=== PATIENT | male | born 1965 | race Caucasian/White ===

== ENCOUNTER 2016-12-25 10:05 | Inpatient (IN) | payer BC ==
[~2016-12-25] VITALS: Ht 190.5 cm; Wt 104.3 kg
[~2016-12-25 10:05] MED LIST: LOSA100T11 PO; NIFE-2 PO; OMEP40CA33 PO; ZOLP5TAB2 PO
[2016-12-25] MEDS ORDERED: ALVIMOPAN 12 MG CAPSULE PO ONE (12:56)
[2016-12-25] MEDS ORDERED: cefOXitin SODIUM 2 GM in D5W 100 ML IV ONE (13:15)
[2016-12-25] MEDS ORDERED: SEVOFLURANE 15 MIN GAS INH ONE ×2 (14:00)
[2016-12-25] MEDS ORDERED: DEXAMETHASONE SOD PHOSPHATE 4 MG/ML VIAL ONE ×2 (14:00)
[2016-12-25] MEDS ORDERED: DOPamine PREMIX 400 MG/250 ML BTL IV ONE (14:00)
[2016-12-25] MEDS ORDERED: KETOROLAC TROMETHAMINE 30 MG VIAL ONE (14:00)
[2016-12-25] MEDS ORDERED: MIDAZOLAM HCL 5 MG/5 ML VIAL ONE ×2 (14:00)
[2016-12-25] MEDS ORDERED: fentaNYL CITRATE 250 MCG/5 ML AMP ONE ×2 (14:00)
[2016-12-25] MEDS ORDERED: fentaNYL CITRATE/PF 100 MCG/2 ML AMP ONE ×2 (14:00)
[2016-12-25] MEDS ORDERED: ONDANSETRON HCL 4 MG/2 ML VIAL ONE ×4 (14:00→20:26)
[2016-12-25] MEDS ORDERED: ROCURONIUM BROMIDE 10 MG/ML (ZEMURON) ONE ×2 (14:00)
[2016-12-25] MEDS ORDERED: NS 1000 ML BAG IV ONE ×2 (14:00)
[2016-12-25] MEDS ORDERED: THROMBIN (BOVINE) 5000 UNITS/ VIAL TP ONE (14:00)
[2016-12-25] MEDS ORDERED: cefOXitin SODIUM 2 GM/VIAL (MEFOXIN) ONE (14:00)
[2016-12-25] MEDS ORDERED: GELATIN SPONGE 100 TP ONE (14:00)
[2016-12-25] MEDS ORDERED: PROPOFOL 200MG/ 20ML VIAL (DIPRIVAN) IV ONE (14:00)
[2016-12-25] MEDS ORDERED: CALCIUM CHLORIDE 1 GM/10 ML DISP.SYRIN (14 mEq Ca++/SYR) ONE (14:00)
[2016-12-25] MEDS ORDERED: LR 1,000 ML IV.SOLN IV ONE (14:00)
[2016-12-25] MEDS ORDERED: NS IRRIG SOLN 1000 ML IR ONE (14:00)
[2016-12-25] MEDS ORDERED: BUPIVACAINE LIPOSOME/PF 266 MG/20 ML VIAL INFIL ONE (15:00)
[2016-12-25] MEDS ORDERED: FAMOTIDINE PF 20 MG/2 ML VIAL ONE (15:13)
[2016-12-25] MEDS ORDERED: HYDROmorphone 1 MG INJ. 1 MG/ML AMPUL IVP PRN (16:00)
[2016-12-25] MEDS ORDERED: MEPERIDINE HCL/PF 25 MG/ML DISP.SYRIN IVP PRN (16:00)
[2016-12-25] MEDS ORDERED: HYDROmorphone 2 MG/ML VIAL IVP PRN ×2 (16:00)
[2016-12-25] MEDS ORDERED: D5/0.45 NS 1,000 ML IV SCH (17:22)
[2016-12-25] MEDS ORDERED: HYDROcodone/ACETAMIN 5-325 MG TAB (NORCO/ VICODIN) PO PRN (17:30)
[2016-12-25] MEDS ORDERED: ONDANSETRON HCL 4 MG/2 ML VIAL IVP PRN ×2 (17:30→20:15)
[2016-12-25] MEDS ORDERED: HYDROmorphone 2 MG/ML VIAL ONE (17:57)
[2016-12-25 18:37] LABS: HEMATOCRIT 34.6 % (36-54); HEMOGLOBIN 12.2 g/dL (14.0-18.0)
[2016-12-25 18:55] LABS: ANION GAP 6 (5-15); CALCIUM 8.1 mg/dL (8.4-11.0); CHLORIDE 107 mmol/L (98-107); CREATININE 1.38 mg/dL (0.55-1.30); GLUCOSE 215 mg/dL (70-99); POTASSIUM 3.8 mmol/L (3.5-5.1); SODIUM SERUM 142 mmol/L (136-145); UREA NITROGEN, BLOOD 12 mg/dL (8-21)
[2016-12-25 18:56] LABS: GFR AFRICAN AMERICAN 70 mL/min (>90)
[2016-12-25] MEDS ORDERED: NALOXONE HCL 0.4 MG/ML AMP (NARCAN) IVP ONE (19:00)
[2016-12-25] MEDS ORDERED: NALOXONE HCL 0.4 MG/ML AMP (NARCAN) ONE (19:08)
[2016-12-25] MEDS ORDERED: LR 1,000 ML IV SCH ×2 (19:15→23:48)
[2016-12-25] MEDS ORDERED: ePHEDrine sulfate 50 MG/ML VIAL ONE (19:18)
[2016-12-25] MEDS ORDERED: ePHEDrine sulfate 50 MG/ML VIAL IVP ONE (19:30)
[2016-12-25] MEDS ORDERED: LR 1,000 ML IV ONE (19:47)
[2016-12-25] MEDS: DOPamine PREMIX 250 ML IV PRN (20:05)
[2016-12-25] MEDS ORDERED: METOCLOPRAMIDE HCL 10 MG/2 ML VIAL IVP ONE (20:15)
[2016-12-25] MEDS: LR 1,000 ML IV SCH (20:17)
[2016-12-25] MEDS ORDERED: METOCLOPRAMIDE HCL 10 MG/2 ML VIAL ONE (20:22)
[2016-12-25 20:25] LABS: HEMATOCRIT 32.7 % (36-54)
[2016-12-25] MEDS: NACL 0.9% 1,000 ML IV SCH ×2 (20:45)
[2016-12-25] MEDS: cefOXitin SODIUM 2 GM in D5W 100 ML IV SCH (21:00)
[2016-12-25] MEDS: ALVIMOPAN 12 MG CAPSULE PO SCH (21:00)
[2016-12-25] MEDS: FAMOTIDINE PF 20 MG/2 ML VIAL IVP SCH (21:00)
[2016-12-25] MEDS ORDERED: KETAMINE HCL 500 MG/10 ML VIAL ONE (21:29)
[2016-12-25 21:48] VITALS: BP 86/57; PULSE 73
[2016-12-25 23:48] LABS: HEMATOCRIT 32.1 % (36-54); HEMOGLOBIN 10.9 g/dL (14.0-18.0)
[2016-12-26] VITALS (23 sets, daily range): BP systolic 91–129; BP diastolic 60–78; PULSE 98–122; RESP 12–29; TEMP 97.2–100.3; O2SAT 6–99
[2016-12-26] MEDS ORDERED: MEPERIDINE HCL/PF 25 MG/ML DISP.SYRIN IVP PRN
[2016-12-26] MEDS ORDERED: HYDROmorphone 2 MG/ML VIAL IVP PRN ×2
[2016-12-26] MEDS ORDERED: HYDROmorphone 1 MG INJ. 1 MG/ML AMPUL IVP PRN
[2016-12-26] MEDS ORDERED: THROMBIN (BOVINE) 5000 UNITS/ VIAL TP ONE ×2 (00:07→00:10)
[2016-12-26] MEDS: DOPamine PREMIX 250 ML IV PRN ×2 (01:15→07:33)
[2016-12-26 01:56] LABS: HEMOGLOBIN 12.2 g/dL (14.0-18.0); MEAN CORPUSCULAR HEMOGLOBIN 30 pg (27-31); MEAN CORPUSCULAR HGB CONC 34 % (32-36); MEAN CORPUSCULAR VOLUME 89 fL (79.0-98.0); PLATELET COUNT (AUTO) 178 K/uL (130-430); RED BLOOD CELL COUNT(AUTO) 4.05 MIL/uL (4.2-6.2); WHITE BLOOD COUNT (AUTO) 18.6 K/uL (4.8-10.8)
[2016-12-26 02:03] LABS: CREATININE 1.57 mg/dL (0.55-1.30); INR 1.1 (0.80-1.20); POTASSIUM 5.8 mmol/L (3.5-5.1)
[2016-12-26 02:18] LABS: BAND % (MANUAL) 7 % (0-6); BASOPHILS % (MANUAL) 0 % (0-2); EOSINOPHILS % (MANUAL) 0 % (0-7); LYMPHOCYTES % (MANUAL) 5 % (20-46); MONOCYTES % (MANUAL) 6 % (0-11)
--- NOTE | 2016-12-26 02:40 | NUR ---
RECEIVED FROM PACU VIA BED A 51 YO W M W/ DIAGNOSIS OF S/P EXPLORATORY LAPAROTOMY- CONTROL OF POST OP BLEEDING. PT IS AWAKE, ALERT. IN NO APPARENT DISTRESS. ON DOPAMINE AT 5 MCG/KG/MIN. DENIES PAIN. ON O2 AT 2L/MIN/NC. BREATH SOUNDS ESSENTIALLY CLEAR. OCCASIONAL MOIST PRODUCTIVE COUGH. TAUGHT HOW TO SPLINT. MID ABDOMINAL INCISIONAL DRSG AND LEFT LOWER QUADRANT LAPAROSCOPIC INCISION. ABDOMINAL BINDER IN PLACE. ADRIANNA SCD'S ON. WEISS CATH PATENT DRAINING CLEAR YELLOW URINE TO GRAVITY. ST. INSTRUCTED TO LAY ON BACK PER .
--- NOTE | 2016-12-26 04:00 | NUR ---
ANSWERED ADMISSION ASSESSMENT QUESTIONS. RESPONSES APPROPRIATE. VSS. ON DOPAMINE AT 5 MCG/MIN. ORAL CARE GIVEN.
[2016-12-26] MEDS ORDERED: FLU VACC QS 2016-17(36MOS+)/PF 0.5 ML/SYR SYRINGE I.M. PRN (04:30)
--- NOTE | 2016-12-26 06:00 | NUR ---
SLEPT INTERMITTENTLY. ORAL CARE GIVEN. UO GOOD. VSS. DOPAMINE AT 5 MCG/KG/MIN. JESUS'Irasema DUPONT D/I. REMAINS IN GUARDED CONDITION.
[2016-12-26 06:40] LABS: BASOPHILS % (AUTO) 0.1 % (0.0-2.0); HEMATOCRIT 36.5 % (36-54); HEMOGLOBIN 12.7 g/dL (14.0-18.0); LYMPHOCYTES # (AUTO) 0.9 K/uL (1.0-5.5); LYMPHOCYTES % (AUTO) 5.8 % (20.5-51.5); MEAN CORPUSCULAR HEMOGLOBIN 31 pg (27-31); MEAN CORPUSCULAR HGB CONC 35 % (32-36); MEAN CORPUSCULAR VOLUME 89 fL (79.0-98.0); MONOCYTES # (AUTO) 0.9 K/uL (0.0-1.0); MONOCYTES % (AUTO) 5.7 % (1.7-9.3); NEUTROPHILS # (AUTO) 13.5 K/uL (1.8-7.7); NEUTROPHILS % (AUTO) 88.4 % (40.0-70.0); PLATELET COUNT (AUTO) 163 K/uL (130-430); RED BLOOD CELL COUNT(AUTO) 4.11 MIL/uL (4.2-6.2); RED CELL DISTRIBUTION WIDTH 13.2 % (9.0-15.0); WHITE BLOOD COUNT (AUTO) 15.3 K/uL (4.8-10.8)
[2016-12-26 06:54] LABS: ALBUMIN 2.5 g/dL (3.4-4.8); CALCIUM 7.4 mg/dL (8.4-11.0); CREATININE 1.43 mg/dL (0.55-1.30); POTASSIUM 4.9 mmol/L (3.5-5.1); TOTAL BILIRUBIN 1.9 mg/dL (0.0-1.0); TOTAL PROTEIN, SERUM 5.1 g/dL (6.4-8.3)
--- NOTE | 2016-12-26 07:20 | NUR ---
[place] of Care Received pt. Alert oriented, on 2L oxygen without SOB. Dopamine drip infusing. Dressings to abdomen intact, covered with abdominal binder. Call light in reach. Safe environment provided.
[2016-12-26] MEDS: ENOXAPARIN SODIUM 30 MG/0.3 ML SYRINGE SUBCUT SCH (07:46)
[2016-12-26] MEDS ORDERED: COMMUNICATION ORDER XX ONE (08:45)
--- NOTE | 2016-12-26 08:45 | NUR ---
Nutrition Update Bam Scale 17 noted. Pt admitted for diverticulitis of large intestine without perforation. Diet: NPO BMI: 28.7 kg/m2 RD to follow per nutrition care standards.
[2016-12-26] MEDS: ALVIMOPAN 12 MG CAPSULE PO SCH ×2 (09:00→21:36)
[2016-12-26] MEDS: cefOXitin SODIUM 2 GM in D5W 100 ML IV SCH ×3 (09:00→21:35)
[2016-12-26] MEDS: NACL 0.9% 1,000 ML IV SCH (10:00)
--- NOTE | 2016-12-26 10:00 | NUR ---
Will endorse care to SUSANNAH Gardner.
--- NOTE | 2016-12-26 10:05 | NUR ---
REPORT RECEIVED REPORT FROM Regine ECHEVARRIA, TO ASSUME CARE OF PT. PT AROUSES READILY TO VERBAL STIMULUS, STATES PAIN IS A 2 UNLESS HE COUGHS. INSTRUCTED HOW TO SPLINT INCISION WHEN COUGHING TO REDUCE THE PAIN AND THE IMPORTANCE OF COUGHING UP ANY SECRETIONS AND TAKING DEEP BREATHS. VERBALIZES UNDERSTANDING. HAS SCD'S IN USE. C/O DRY MOUTH, MOUTH SWABS AT BEDSIDE - ASSISTED TO SWAB MOUTH. FAMILY MEMBERS VISITED, QUESTIONS ANSWERED.
[2016-12-26] MEDS: D5/0.45 NS 1,000 ML IV SCH ×2 (10:32→21:36)
[2016-12-26] MEDS: HYDROmorphone 1 MG INJ. 1 MG/ML AMPUL IVP PRN ×5 (11:18→22:42)
--- NOTE | 2016-12-26 11:20 | NUR ---
REPORT REPORT GIVEN TO Ida FAITH RN TO ASSUME CARE.
--- NOTE | 2016-12-26 11:30 | NUR ---
Received awake alert,conversant. Scope Sinus Tachycardia .[id number]/min. Denies chest pain. Skin warm and dry a. [id number] Scope Sinus Tachycardia no ectopy noted. Denies chest pain.Lungs sound yang clear. O2 2L/nc. Abdomen soft. Abdominal dressing dry and intact. Binder intact. No Bowel sound noted. Leonard cath draine dark yellow color urine putput. IV site right sibclavian site with D5 1/2 NS at 100ml/hr. NS at 50ml/hr along rigth hand periphral and saline lock left hand and both patent,Denoes post op pain this time.
--- NOTE | 2016-12-26 12:00 | NUR ---
Dr Frost came with order okay to sit in chair and ice chips. Icechips given ,tolerated.
--- NOTE | 2016-12-26 13:00 | NUR ---
Dr Delcid came,assessed with order and carried out
--- NOTE | 2016-12-26 15:00 | NUR ---
right subclavian IV site cleansed and dressed aseptically. all IS placed on right subclavian site.Saline lock both peripheral site.
--- NOTE | 2016-12-26 16:00 | NUR ---
Get up to chair with help,RN and charge nurse. tolerated well.
[2016-12-26] MEDS: FAMOTIDINE PF 20 MG/2 ML VIAL IVP SCH ×2 (16:29→21:35)
--- NOTE | 2016-12-26 16:30 | NUR ---
Back to bed with help by 2 RN,tolerated.VS stable.
--- NOTE | 2016-12-26 16:51 | NUR ---
Post op pain scale 5. Medicated with Dilaudid 1mg IVP as patient requested as order. Slept after
--- NOTE | 2016-12-26 17:30 | NUR ---
woke up,post op pain relieved,Patient mother called in updated patient condition.
--- NOTE | 2016-12-26 18:01 | NUR ---
Alert,cooperative, Skin intact. Bedbath with HCG done. Kept clean and dry.Scope Sinus Tachycardia, no ectopy noted. HR 100-110/min. Lungs sound bilateral clear. O2 sat 96% on 2 L/nc. Deep breathing and coughing exercise encouraged . Abdominal binder intact. Post op pain tolerated. medication refused this time Leonard cath intact. drained 900ml total urine output. IV site right jugular patent. IV D5 1/2NS at 100ml/hr and NS at 50ml/hr.Saline lock both hands intact. Ice chips tolerated. No distress noted.
--- NOTE | 2016-12-26 19:00 | NUR ---
care endorsed to Kevin DAVALOS
--- NOTE | 2016-12-26 20:00 | NUR ---
EYES CLOSED, AROUSABLE ON APPROACH. RESPONSES APPROPRIATE. HAND ENVIRONMENTAL PROTECTION INSPECTOR GOOD. ON O2 AT 2L/MIN/NC. POX 96%. OCCASIONAL MOIST PRODUCTIVE COUGH. TAUGHT HOW TO SPLINT. ABDOMINAL DRSG X2 D/I. ABDOMINAL BINDER IN PLACE. ADRIANNA SCD'S ON. WEISS CATH PATENT DRAINING SMALL AMOUNT OF CONCENTRATED DUNCAN URINE TO GRAVITY. ST. RIGHT INTERNAL JUGULAR TLC DRSG D/I. HOB UP TO COMFORT. REPOSITIONS SELF WELL. CALL LIGHTS WITHIN REACH.
--- NOTE | 2016-12-26 21:00 | NUR ---
TYLENOL GR 10 PO GIVEN FOR TEMP 99.2 TEMPORAL ARTERY SCAN.
[2016-12-26] MEDS: ACETAMINOPHEN 325 MG TABLET PO PRN (21:37)
--- NOTE | 2016-12-26 22:42 | NUR ---
DOZES ON AND OFF. DILAUDID 1 MG IVP GIVEN FOR C/O ABDOMINAL INCISIONAL PAIN, ESPECIALLY WHEN HE COUGHS. SOME TEACHING AND EDUCATION DONE ON HOW TO SPLINT WHEN COUGHING, THE IMPORTANCE OF INCENTIVE SPIROMETER, AND MEDICATION. SEEMS TO UNDERSTAND.
[2016-12-27] VITALS (24 sets, daily range): BP systolic 124–162; BP diastolic 50–96; PULSE 73–95; RESP 12–27; TEMP 98.7–100.1; O2SAT 94–100
--- NOTE | 2016-12-27 | NUR ---
SLEPT INTERMITTENTLY. OCC TAKES OFF NASAL CANNULA, DESATURATES TO 91 %. INSTRUCTED TO KEEP IT ON, COMPLIANT. H/H DRAWN FROM RIGHT IJ. ABD'L PAIN BETTER. TEMP 99.1 ORALLY.
--- NOTE | 2016-12-27 01:45 | NUR ---
DR CASTILLO NOTIFIED OF H/H ., ORDERED REDRAW H/H BY STICK, CARRIED OUT.
[2016-12-27 01:53] LABS: HEMATOCRIT 25.1 % (36-54)
[2016-12-27 02:01] LABS: HEMOGLOBIN 8.5 g/dL (14.0-18.0)
--- NOTE | 2016-12-27 02:07 | NUR ---
DR CASTILLO NOTIFIED H/H SECOND DRAW ., ORDERED TO TRANSFUSE 1 UNIT [facility], TO BE IMPLEMENTED.
--- NOTE | 2016-12-27 03:00 | NUR ---
1 UNIT [facility] # [id number]
[2016-12-27] MEDS: NACL 0.9% 1,000 ML IV SCH ×2 (03:30→23:52)
--- NOTE | 2016-12-27 05:40 | NUR ---
PRBC ALL INFUSED. VSS.
[2016-12-27] MEDS: HYDROcodone/ACETAMIN 5-325 MG TAB (NORCO/ VICODIN) PO PRN ×3 (05:57→16:32)
--- NOTE | 2016-12-27 06:00 | NUR ---
USES INCENTIVE SPIROMETER TO 750 ML. [place] 5-325MG PO GIVEN FOR C/O ABD'L INCISIONAL PAIN. HOB HIGH FOWLERS. UO ADEQUATE. ABD'L DRGS D/I. TAKES ICE CHIPS. REMAINS IN GUARDED CONDITION.
[2016-12-27 06:52] LABS: ALBUMIN 2.2 g/dL (3.4-4.8); CALCIUM 7.2 mg/dL (8.4-11.0); CREATININE 0.94 mg/dL (0.55-1.30); POTASSIUM 3.9 mmol/L (3.5-5.1); TOTAL BILIRUBIN 0.7 mg/dL (0.0-1.0); TOTAL PROTEIN, SERUM 4.5 g/dL (6.4-8.3)
--- NOTE | 2016-12-27 07:45 | NUR ---
BEGINNING OF SHIFT ASSESSMENT: Received patient sitting upright in bed,guarding abdominal area.Patient is awake and alert x 4,able to make needs known,oriented to room and situation.Patient lung sounds clear through out,pt on NC 2L.Patient receiving NS at rate of 50cc/hr and D5 1/2 NS at rate of 100cc/hr. Patient has post op dressing to abdomen and abdominal bindings in place.Bed locked,in lowest position, call light with in reach, upper side rails x 2.Pt continues to be closely monitored.
[2016-12-27 07:47] LABS: HEMATOCRIT 27.1 % (36-54); HEMOGLOBIN 9.1 g/dL (14.0-18.0); MEAN CORPUSCULAR HEMOGLOBIN 30 pg (27-31); MEAN CORPUSCULAR HGB CONC 34 % (32-36); MEAN CORPUSCULAR VOLUME 89 fL (79.0-98.0); PLATELET COUNT (AUTO) 111 K/uL (130-430); RED BLOOD CELL COUNT(AUTO) 3.07 MIL/uL (4.2-6.2)
[2016-12-27 07:48] LABS: BASOPHILS # (AUTO) 0.1 K/uL (0.0-0.2); BASOPHILS % (AUTO) 0.5 % (0.0-2.0); EOSINOPHILS # (AUTO) 0.1 K/uL (0.0-0.4); EOSINOPHILS % (AUTO) 0.5 % (0.0-4.0); LYMPHOCYTES # (AUTO) 1.7 K/uL (1.0-5.5); LYMPHOCYTES % (AUTO) 15.8 % (20.5-51.5); MONOCYTES % (AUTO) 9.7 % (1.7-9.3); NEUTROPHILS # (AUTO) 7.8 K/uL (1.8-7.7); NEUTROPHILS % (AUTO) 73.5 % (40.0-70.0); WHITE BLOOD COUNT (AUTO) 10.7 K/uL (4.8-10.8)
[2016-12-27] MEDS: cefOXitin SODIUM 2 GM in D5W 100 ML IV SCH ×2 (08:43→21:46)
[2016-12-27] MEDS: ALVIMOPAN 12 MG CAPSULE PO SCH ×2 (08:43→21:46)
[2016-12-27] MEDS: ENOXAPARIN SODIUM 30 MG/0.3 ML SYRINGE SUBCUT SCH (08:43)
[2016-12-27] MEDS: ACETAMINOPHEN 325 MG TABLET PO PRN ×2 (08:43→18:21)
[2016-12-27] MEDS: FAMOTIDINE PF 20 MG/2 ML VIAL IVP SCH ×2 (08:44→21:46)
--- NOTE | 2016-12-27 11:10 | NUR ---
PAIN: Pt verbalized 3/10 pain to abdominal incision area.Patient given [place] 5/325 PO as ordered for pain.Will reassess patient within the hour.
[2016-12-27 11:57] LABS: HEMATOCRIT 26.2 % (36-54); HEMOGLOBIN 8.9 g/dL (14.0-18.0)
--- NOTE | 2016-12-27 12:00 | NUR ---
Pt Reassessment: Pt observed sitting in bed, resting with eyes closed.Medication effective.FLACC score 0.Pt bed locked,in lowest position,call light within easy reach, upper side rails x2 up.Pt continues to be monitored closely.
[2016-12-27] MEDS: D5/0.45 NS 1,000 ML IV SCH ×2 (12:25→23:51)
[2016-12-27] MEDS: HYDROmorphone 1 MG INJ. 1 MG/ML AMPUL IVP PRN ×2 (12:46→21:55)
--- NOTE | 2016-12-27 13:00 | NUR ---
SPIROMETER: Pt provided pt education on proper spirometer use.Patient observed providing Nurse return demo of spirometer.Patient used spirometer to 850 ml.Encouraged patient to use spirometer x 10 during shift.
--- NOTE | 2016-12-27 14:00 | NUR ---
MD ROUNDING: Dr. Frost at bedside.Updated on pt condition.MD updated nurse on plan of care. Will continue to monitor.
--- NOTE | 2016-12-27 16:30 | NUR ---
PAIN: Patient verbalized 3/10 abdominal pain.Patient given [place] 5/325 PO as ordered.Will reassess within the hour.
--- NOTE | 2016-12-27 17:20 | NUR ---
Spirometer: Patient observed using spirometer at bedside.Patient stated pain medication effective, 0/10 pain.Patient turned and repositioned for comfort.Bed locked, in lowest position,call light within easy reach, upper side rails x 2 up.Pt continues to be monitored closely.
[2016-12-27] MEDS: METOCLOPRAMIDE HCL 10 MG/2 ML VIAL IVP SCH ×2 (17:52→23:50)
[2016-12-27 18:02] LABS: HEMATOCRIT 25.4 % (36-54); HEMOGLOBIN 8.8 g/dL (14.0-18.0)
--- NOTE | 2016-12-27 18:35 | NUR ---
LAB VALUE Update: Reviewed 1800 H/H latest lab values. . Updated Dr. Frost on recent lab values. Pt bed locked,in lowest position,call light within easy reach, upper side rails x 2.Pt continues to be monitored closely.
--- NOTE | 2016-12-27 19:27 | NUR ---
CLOSING NOTE: Report and plan of care given to Kevin DAVALOS via SBAR method.Pt resting in bed. VSS stable.
--- NOTE | 2016-12-27 20:00 | NUR ---
EYES CLOSED, EASILY AROUSABLE ON APPROACH AND TAKING OF VS. DENIES ACUTE PAIN. ON O2 AT 2L/MIN/NC. POX 97%. PERRLA. BREATH SOUNDS CLEAR. BOWEL SOUNDS HYPOACTIVE. ABDOMINAL DRSG D/I. ABD'L BINDER IN PLACE. SR. WEISS CATH PATENT DRAINING CLEAR DUNCAN URINE TO GRAVITY. MOTHER VISITING EARLIER. UPDATED ON STATUS. QUESTIONS ANSWERED. ELECTRIC FAN ON.
--- NOTE | 2016-12-27 22:00 | NUR ---
WATCHING TV. USES INCENTIVE SPIROMETER PRN. PLEASANT. CONVERSANT. DILAUDID 1 MG IVP GIVEN PER PT REQUEST FOR MID ABDOMEN INCISIONAL PAIN, 7/10 IN PAIN SCALE. UO GOOD.
[2016-12-28] VITALS (15 sets, daily range): BP systolic 148–178; BP diastolic 87–102; PULSE 70–91; RESP 16–26; TEMP 98–98.7; O2SAT 91–99
--- NOTE | 2016-12-28 | NUR ---
DOZES ON AND OFF. VSS. HOB UP TO COMFORT. UO GOOD.
--- NOTE | 2016-12-28 02:00 | NUR ---
SLEPT INTERMITTENTLY. DILAUDID 1 MG IVP GIVEN PER PT REQUEST FOR INCISIONAL PAIN 7/10 IN PAIN SCALE. UO VERY GOOD.
[2016-12-28] MEDS: HYDROmorphone 1 MG INJ. 1 MG/ML AMPUL IVP PRN ×6 (02:07→22:29)
--- NOTE | 2016-12-28 02:08 | NUR ---
H/H 9.3/27.5
[2016-12-28 02:48] LABS: HEMATOCRIT 27.5 % (36-54); HEMOGLOBIN 9.3 g/dL (14.0-18.0)
--- NOTE | 2016-12-28 04:00 | NUR ---
SOUNDLY ASLEEP. NO DISTRESS NOTED. LOOKS COMFORTABLE.
--- NOTE | 2016-12-28 05:00 | NUR ---
AWAKE. DENIES ACUTE PAIN/SOB/DISTRESS. USING INCENTIVE SPIROMETER UP TO 1000ML.
--- NOTE | 2016-12-28 06:00 | NUR ---
SLEPT FOR LONG PERIODS OF TIME. UO GOOD. ABDOMINAL DRSG D/I. SR. REMAINS IN GUARDED CONDITION.
[2016-12-28 06:31] LABS: BASOPHILS # (AUTO) 0.1 K/uL (0.0-0.2); BASOPHILS % (AUTO) 0.6 % (0.0-2.0); EOSINOPHILS # (AUTO) 0.1 K/uL (0.0-0.4); EOSINOPHILS % (AUTO) 1.7 % (0.0-4.0); HEMATOCRIT 25.2 % (36-54); HEMOGLOBIN 8.4 g/dL (14.0-18.0); LYMPHOCYTES # (AUTO) 1.5 K/uL (1.0-5.5); LYMPHOCYTES % (AUTO) 17.3 % (20.5-51.5); MEAN CORPUSCULAR HEMOGLOBIN 30 pg (27-31); MEAN CORPUSCULAR HGB CONC 33 % (32-36); MEAN CORPUSCULAR VOLUME 89 fL (79.0-98.0); MONOCYTES # (AUTO) 0.7 K/uL (0.0-1.0); MONOCYTES % (AUTO) 8.7 % (1.7-9.3); NEUTROPHILS # (AUTO) 6.1 K/uL (1.8-7.7); NEUTROPHILS % (AUTO) 71.7 % (40.0-70.0); PLATELET COUNT (AUTO) 114 K/uL (130-430); RED BLOOD CELL COUNT(AUTO) 2.84 MIL/uL (4.2-6.2); RED CELL DISTRIBUTION WIDTH 13.9 % (9.0-15.0); WHITE BLOOD COUNT (AUTO) 8.5 K/uL (4.8-10.8)
[2016-12-28] MEDS: METOCLOPRAMIDE HCL 10 MG/2 ML VIAL IVP SCH ×4 (06:31→23:57)
[2016-12-28 06:44] LABS: ALBUMIN 2.2 g/dL (3.4-4.8); CALCIUM 7.4 mg/dL (8.4-11.0); CREATININE 0.8 mg/dL (0.55-1.30); POTASSIUM 3.3 mmol/L (3.5-5.1); TOTAL BILIRUBIN 0.5 mg/dL (0.0-1.0); TOTAL PROTEIN, SERUM 4.9 g/dL (6.4-8.3)
--- NOTE | 2016-12-28 06:52 | NUR ---
DILAUDID 1 MG IVP GIVEN PER PT REQUEST FOR ABDOMINAL INCISIONAL PAIN 7/10 IN PAIN SCALE.
[2016-12-28] MEDS: FAMOTIDINE PF 20 MG/2 ML VIAL IVP SCH ×2 (08:10→20:17)
[2016-12-28] MEDS: ENOXAPARIN SODIUM 30 MG/0.3 ML SYRINGE SUBCUT SCH (08:10)
[2016-12-28] MEDS: cefOXitin SODIUM 2 GM in D5W 100 ML IV SCH ×2 (08:10→08:35)
[2016-12-28] MEDS: ALVIMOPAN 12 MG CAPSULE PO SCH ×2 (09:00→20:17)
[2016-12-28 10:14] LABS: HEMATOCRIT 25.8 % (36-54); HEMOGLOBIN 8.9 g/dL (14.0-18.0)
--- NOTE | 2016-12-28 11:15 | NUR ---
Transfer to Tele: Patient transferred to tele, report from SUSANNAH Morales. IV intact to LUE with no redness or swelling noted to site. Dressing to right neck CDI, Dressing to abdomen CDI. Abdominal binder in place. Leonard cath in place, draining well to gravity. Call light in reach. Continue to monitor.
[2016-12-28] MEDS: ENALAPRILAT DIHYDRATE 1.25 MG/ML VIAL IVP PRN ×3 (11:37→23:56)
[2016-12-28] MEDS: KCL 10 mEq in D5/0.45NS 1000mL 1,000 ML IV SCH (11:38)
--- NOTE | 2016-12-28 13:44 | NUR ---
Rounds: Pt sitting semi-fowlers in bed. No acute signs of distress noted. IV intact to LUE with no redness or swelling noted to site. Call light in reach. Leonard cath draining well to gravity. SCDs in place. Abdominal binder in place. Continue to monitor.
--- NOTE | 2016-12-28 14:10 | NUR ---
Called Pharmacy/Dr. Frost: Called pharmacy to inquire about K-rider entered this AM, pharmacy states "ok we will enter the order". Dr. Frost called to inquire about tele status of patient and ask if we could change patient to med-surg. Dr. Frost stats "No, I want to keep him on tele one more day and we will re-evaluate tomorrow"
[2016-12-28] MEDS ORDERED: COMMUNICATION ORDER XX ONE (14:30)
--- NOTE | 2016-12-28 15:32 | NUR ---
Rounds: Pt sitting semi-fowlers in bed. No acute signs of distress noted at this time. IV intact to LUE with no redness or swelling noted to site. Call light in reach. Patient denies pain. Continue to monitor.
--- NOTE | 2016-12-28 15:59 | NUR ---
Called Pharmacy: Called pharmacy, spoke with Doreen regarding K-rider ordered this AM--has not yet been delivered. Pharmacy aware.
[2016-12-28] MEDS ORDERED: POTASSIUM CHLORIDE 40 MEQ in NS 250 ML IV ONE (17:00)
--- NOTE | 2016-12-28 17:43 | NUR ---
Rounds: Pt sitting semi-fowlers in bed. Medicated given for elevated BP, and K-rider given. Pt tolerates well. Call light in reach. Patient denies pain. Patient able to return demonstrate use of IS at 10x/hr at 1000mL inspired air. Continue to monitor.
[2016-12-28 18:07] LABS: HEMOGLOBIN 8.9 g/dL (14.0-18.0)
--- NOTE | 2016-12-28 18:52 | NUR ---
Closing Note: Pt sitting semi-fowlers in bed. No acute signs of distress noted. Abdominal binder in place. IV fluids infusing well to RUE, pt c/o pain to LUE, IV removed, tubing intact, dressing in place to site. Leonard cath draining well to gravity. Pt also medicated for c/o pain. No other needs noted at this time. Call light in reach. SCDs in place. Endorse plan of care to RAMESH DAVALOS.
--- NOTE | 2016-12-28 19:50 | NUR ---
PM SHIFT ASSESSMENT Patient resting quietly in bed, no distress noted, vitals stable. Dressing to right neck CDI, dressing to abdomen CDI with abdominal binder in place. Patient has a vasquez cath draining yellow urine and to gravity. Patient oriented to use call light for nurse assistance, call light in reach, safety measures in place, will continue to monitor.
--- NOTE | 2016-12-28 20:55 | NUR ---
RN ROUNDS Patient awake, abdominal pain tolerable at this time. Due medications administered. Educated on use and side effects of medications, patient verbalized understanding, mother at bedside, updated on plan of care, verbalized understanding. Patient educated on use of incentive spirometer while awake, able to inspire up to 1000 ml. Compliant. Call light remains within reach, will monitor.
--- NOTE | 2016-12-28 22:43 | NUR ---
RN ROUNDS/PAIN Patient moved to room 123A, all belongings sent with patient. Patient medicated with Dilaudid 1 mg IVP for pain management. Safety measures in place, call light remains within reach, will reassess patient pain level shortly.
--- NOTE | 2016-12-29 00:04 | NUR ---
RN ROUNDS Patient resting quietly, denies any pain or discomfort. Vitals stable. Due medications administered, BP medication given for SBP > 140. Repositioned patient for comfort, call light remains within reach, will monitor. Addendum: 12/29/16 at 0032 by Alexa Zhou RN cooling measures applied for temp of 100.
[2016-12-29 00:07] VITALS: BP 147/96; PULSE 88; RESP 18; TEMP 100.4; O2SAT 94
--- NOTE | 2016-12-29 02:35 | NUR ---
RN ROUNDS Patient awake, denies any pain at this time, help patient to sit up in chair, tolerating well. Call light remains within reach, will monitor.
[2016-12-29] MEDS: KCL 10 mEq in D5/0.45NS 1000mL 1,000 ML IV SCH (02:39)
[2016-12-29] MEDS: HYDROmorphone 1 MG INJ. 1 MG/ML AMPUL IVP PRN (02:45)
[2016-12-29] MEDS: ACETAMINOPHEN 325 MG TABLET PO PRN (02:52)
--- NOTE | 2016-12-29 03:18 | NUR ---
RN ROUNDS/PAIN Patient back in bed, and medicated with Dilaudid 1 mg IVP for pain management. Patient given Tylenol, cooling measures applied. Safety measures in place, call light remains within reach, will reassess patient pain level shortly.
--- NOTE | 2016-12-29 04:30 | NUR ---
RN ROUNDS Patient resting quietly in, vitals stable. Safety measures in place, call light remains within reach, will continue to monitor.
[2016-12-29 04:52] VITALS: BP 150/92; RESP 18; TEMP 98.2; O2SAT 93
[2016-12-29] MEDS: METOCLOPRAMIDE HCL 10 MG/2 ML VIAL IVP SCH (06:00)
[2016-12-29 06:37] LABS: BASOPHILS % (AUTO) 0.4 % (0.0-2.0); EOSINOPHILS # (AUTO) 0.2 K/uL (0.0-0.4); EOSINOPHILS % (AUTO) 2.2 % (0.0-4.0); HEMATOCRIT 24.6 % (36-54); HEMOGLOBIN 8.4 g/dL (14.0-18.0); LYMPHOCYTES # (AUTO) 1.3 K/uL (1.0-5.5); LYMPHOCYTES % (AUTO) 13.4 % (20.5-51.5); MEAN CORPUSCULAR HEMOGLOBIN 30 pg (27-31); MEAN CORPUSCULAR HGB CONC 34 % (32-36); MEAN CORPUSCULAR VOLUME 88 fL (79.0-98.0); MONOCYTES # (AUTO) 0.8 K/uL (0.0-1.0); MONOCYTES % (AUTO) 7.9 % (1.7-9.3); NEUTROPHILS # (AUTO) 7.4 K/uL (1.8-7.7); NEUTROPHILS % (AUTO) 76.1 % (40.0-70.0); PLATELET COUNT (AUTO) 162 K/uL (130-430); RED BLOOD CELL COUNT(AUTO) 2.79 MIL/uL (4.2-6.2); RED CELL DISTRIBUTION WIDTH 13.6 % (9.0-15.0); WHITE BLOOD COUNT (AUTO) 9.7 K/uL (4.8-10.8)
[2016-12-29 06:44] LABS: ALBUMIN 2.3 g/dL (3.4-4.8); CALCIUM 7.6 mg/dL (8.4-11.0); CREATININE 0.8 mg/dL (0.55-1.30); POTASSIUM 3.5 mmol/L (3.5-5.1); TOTAL BILIRUBIN 1.1 mg/dL (0.0-1.0); TOTAL PROTEIN, SERUM 5.4 g/dL (6.4-8.3)
--- NOTE | 2016-12-29 06:52 | NUR ---
RN ROUNDS Patient awake, denies any pain or discomfort at this time, IVF infusing, abdominal binder in place, vasquez catheter secured and to gravity draining yellow urine. Patient needs attended to, safety measures maintained, call light within reach, will continue to monitor until report given to am nurse.
[2016-12-29 07:50] VITALS: BP 185/93; PULSE 95; RESP 20; TEMP 99.3; O2SAT 95
--- NOTE | 2016-12-29 08:00 | NUR ---
INITIAL ROUNDS Received pt AAOx4 sitting up on bedside with no s/s resp distress, c/o mild pain 2-3/10 to abd-will check on pain medication. Noted pt with elevated BP-will give PRN BP medication as ordered. Noted pt had a BM this am with some dark red blood-Dr. Frost here and informed & stated it is normal with 1st BM post this procedure. Dr. Frost came in and saw the pt-removed pt's dressing-no drainage noted, pt has multiple jada open to air with abd binder in place for support. Leonard DC'd per MD order-pt tolerated well. Telemetry DC'd per MD order. Plan of care for the day reviewed with pt -pt verbalized his understanding. Pain management, need to void, skin and safety discussed-teach back done. Contact phone number explained, call light within reach.
[2016-12-29] MEDS: FAMOTIDINE PF 20 MG/2 ML VIAL IVP SCH (08:12)
[2016-12-29] MEDS: ENALAPRILAT DIHYDRATE 1.25 MG/ML VIAL IVP PRN (08:13)
[2016-12-29] MEDS: ALVIMOPAN 12 MG CAPSULE PO SCH (08:13)
[2016-12-29] MEDS: ENOXAPARIN SODIUM 30 MG/0.3 ML SYRINGE SUBCUT SCH (08:14)
[2016-12-29] MEDS: HYDROcodone/ACETAMIN 5-325 MG TAB (NORCO/ VICODIN) PO PRN ×2 (08:15→12:27)
[2016-12-29] MEDS: cefOXitin SODIUM 2 GM in D5W 100 ML IV SCH (08:24)
--- NOTE | 2016-12-29 09:50 | NUR ---
ROUNDS/GI/VOID Pt resting quietly in bed with no further c/o pain. Pt tolerated clear liquid breakfast with no c/o GI distress. Noted pt voided over 150 ml urine. Needs met, call light within reach.
[2016-12-29] MEDS ORDERED: LOSARTAN POTASSIUM 50 MG TABLET (COZAAR) PO ONE (10:00)
[2016-12-29] MEDS ORDERED: NIFEDIPINE 30 MG TAB.ER.24 PO ONE (10:00)
[2016-12-29] MEDS ORDERED: POTASSIUM CHLORIDE 20 MEQ TAB.PRT.SR PO ONE (10:00)
[2016-12-29 12:26] VITALS: BP 151/97; PULSE 86; RESP 17; TEMP 99.1; O2SAT 95
--- NOTE | 2016-12-29 12:30 | NUR ---
ROUNDS Pt sitting up i bed with no s/s resp distress, pt c/o pain to incision site-pt given [place] as ordered. Pt tolerating clear liquid diet, no c/o GI distress. Needs met, call light within reach.
[2016-12-29 12:45] VITALS: BP 151/97; PULSE 86; RESP 17; TEMP 99.1; O2SAT 95
[2016-12-29] MEDS ORDERED: HYDR-1189 PO ×2 (13:18→13:19)
[2016-12-29 13:30] VITALS: BP 151/97; PULSE 92
--- NOTE | 2016-12-29 14:50 | NUR ---
PT DISCHARGED Pt given medication reconciliation form and D/C instructions. Exit Care on Diverticulitis, [place] and Lap Colon Resection After Care explained and provided. Pt verbalized his understanding. discussed with pt the results and treatment provided. Ambulatory with steady gait for discharge to home. Pt in stable condition, ID band removed. IV catheter removed, intact and dressing applied, no active bleeding. Rx of [place] given. Pt educated on pain management. All belongings sent with pt. Pt left floor via wheelchair to private vehicle in no distress.
[2016-12-29 15:51] VITALS: Ht 190.5 cm; Wt 104.3 kg
[2016-12-29] MEDS ORDERED: LOSARTAN POTASSIUM 50 MG TABLET (COZAAR) PO SCH (21:00)
[2016-12-30] MEDS ORDERED: NIFEDIPINE 30 MG TAB.ER.24 PO SCH (09:00)
== END 2016-12-29 14:15 | disposition home or self-care (01) | DRG 330 ==
LOC: SMU 12:24 → SIC 12-26 02:58 → STU 12-28 11:15 → SMU 12-29 13:44
PROVIDERS: ADMIT Colon & Rectal Surgery; ATTEND Colon & Rectal Surgery
PROC: 0DTN8ZZ Resection of Sigmoid Colon, Via Natural or Artificial Opening Endoscopic (ICD-10-PCS; 2016-12-25)
PROC: 30243K1 Transfusion of Nonautologous Frozen Plasma into Central Vein, Percutaneous Approach (ICD-10-PCS; 2016-12-25)
PROC: 30243N1 Transfusion of Nonautologous Red Blood Cells into Central Vein, Percutaneous Approach (ICD-10-PCS; 2016-12-25)
PROC: 02HV33Z Insertion of Infusion Device into Superior Vena Cava, Percutaneous Approach (ICD-10-PCS; principal; 2016-12-26)
PROC: 0W3G0ZZ Control Bleeding in Peritoneal Cavity, Open Approach (ICD-10-PCS; 2016-12-26)
DX: K57.92 Diverticulitis of intestine, part unspecified, without perforation or abscess without bleeding (principal); R57.9 Shock, unspecified; D78.22 Postprocedural hemorrhage of the spleen following other procedure; Y83.8 Other surgical procedures as the cause of abnormal reaction of the patient, or of later complication, without mention of misadventure at the time of the procedure; K66.0 Peritoneal adhesions (postprocedural) (postinfection); D73.5 Infarction of spleen; I10 Essential (primary) hypertension; K21.9 Gastro-esophageal reflux disease without esophagitis; G47.00 Insomnia, unspecified; K57.30 Diverticulosis of large intestine without perforation or abscess without bleeding
CPT/HCPCS: 36415; 71010; 76705; 80048; 80053; 83735-TC; 84484; 85007; 85018-TC; 85025; 85027; 85610-TC; 85730-TC; 86886; 86900; 86901; 86920; 87081; 88307; 93005; 94010; 97116-GP; C1727; C9290; E0190; J0694; J1100; J1170; J1265; J1650; J1885; J2250; J2310; J2405; J2704; J2765; J3010; J3480; J3490; J7030; J7050; J7060; J7120; P9021; P9059